=== PATIENT | female | born 1925 | race Caucasian/White ===

== ENCOUNTER 2016-06-19 18:56 | Inpatient (IN) | payer MEDICARE ==
[2016-06-19] MEDS ORDERED: SODIUM CHLORIDE 0.9% 1,000 ML IV ONE (19:36)
--- NOTE | 2016-06-19 19:43 | ED ---
Fall HPI - General Chief Complaint: Fall Stated Complaint: Fall Time Seen by Provider: 06/19/16 19:18 Source: patient, family, RN notes reviewed Mode of arrival: wheelchair - History of Present Illness Initial Comments: Patient is a 89-year-old female presents emergency room for evaluation of fall. Patient's daughter is present with patient. Patient's daughter states patient has a history dementia and lives by herself. Patient's daughter states she went to check on patient last night and was told that she fell about 2 nights ago. Patient's daughter states the fall was unwitnessed. Patient's daughter states she is not sure how patient fell. Patient's daughter states patient is continuously complaining of low back/tailbone pain. Patient's daughter states she gave patient 600 mg ibuprofen with little relief symptoms. Patient's daughter states patient told her she hit her head during the fall. Patient states she is having severe pain in her tailbone. Patient states the pain is worse when she moves her back or walks. Patient denies numbness or tingling going down her legs. Patient denies saddle anesthesia. Patient does state she has slight head pain from fall 2 days ago. Patient denies limb pain, chest pain, neck pain, abdominal pain. Patient's daughter does admit that she has urinary incontinence issues. - Related Data Home Medications Medication Instructions Recorded Confirmed Aspirin EC [Ecotrin] 81 mg PO DAILY 07/11/14 06/19/16 Losartan Potassium [Cozaar] 25 mg PO DAILY 07/11/14 06/19/16 Pravastatin Sodium [Pravachol] 40 mg PO DAILY 07/11/14 06/19/16 Sertraline HCl [Zoloft] 50 mg PO DAILY 07/11/14 06/19/16 Loratadine [Claritin] 10 mg PO DAILY 11/30/15 06/19/16 Cholecalciferol [Vitamin D3] 1,000 unit PO DAILY 06/19/16 06/19/16 Ibuprofen [Motrin] 600 mg PO Q8HR PRN 06/19/16 06/19/16 Magnesium Hydroxide [Milk of 1,200 mg PO DAILY PRN 06/19/16 06/19/16 Magnesia] Meloxicam [Mobic] 15 mg PO DAILY 06/19/16 06/19/16 Ranitidine HCl [Zantac] 150 mg PO DAILY 06/19/16 06/19/16 Allergies Allergy/AdvReac Type Severity Reaction Status Date / Time Sulfa (Sulfonamide Allergy Unknown Verified 06/19/16 19:27 Antibiotics) Review of Systems ROS Statement: Those systems with pertinent positive or pertinent negative responses have been documented in the HPI. ROS Other: All systems not noted in ROS Statement are negative. Past Medical History Past Medical History: COPD, Dementia, Hypertension History of Any Multi-Drug Resistant Organisms: None Reported Past Surgical History: No Surgical Hx Reported Past Psychological History: Depression Smoking Status: Current every day smoker Past Alcohol Use History: None Reported Past Drug Use History: None Reported - Past Family History Mother Family Medical History: CVA/TIA, Myocardial Infarction ([place]) Father Family Medical History: Myocardial Infarction ([place]) General Exam - General Exam Comments Initial Comments: Sitting in exam room, no distress. Limitations: no limitations General appearance: alert, in no apparent distress Head exam: Present: atraumatic, normocephalic, normal inspection Eye exam: Present: normal appearance, PERRL, EOMI Pupils: Present: normal accommodation ENT exam: Present: normal exam Neck exam: Present: normal inspection Respiratory exam: Present: normal lung sounds bilaterally. Absent: respiratory distress Cardiovascular Exam: Present: regular rate, normal rhythm, normal heart sounds GI/Abdominal exam: Present: soft, normal bowel sounds. Absent: distended, tenderness, guarding, rebound, rigid Extremities exam: Present: normal inspection, full ROM, normal capillary refill. Absent: tenderness Back exam: Present: vertebral tenderness (Lumbosacral spine and coccyx). Absent : full ROM Neurological exam: Present: alert, oriented X3, CN II-XII intact, normal gait Expanded Patient oriented to: Present: person Cranial nerves: EOM's Intact: Normal Sensory exam: Upper Extremity Light Touch: Normal, Lower Extremity Light Touch: Normal Motor strength exam: RUE: 5, LUE: 5, RLE: 5, LLE: 5 Psychiatric exam: Present: normal affect, normal mood Skin exam: Present: warm, dry, intact, normal color. Absent: rash Course Vital Signs 06/19/16 06/19/16 19:03 23:09 Temperature 98.4 F Pulse Rate 98 97 Respiratory 16 16 Rate Blood Pressure 116/61 149/81 O2 Sat by Pulse 95 94 L Oximetry Medical Decision Making - Medical Decision Making Patient is a 89-year-old female presents to the emergency room for evaluation of unwitnessed fall injury. Brain/C-spine CT shows no acute findings. Lumbosacral spine x-ray significant for progressed L1 compression fracture from 11/30/15 with 30-40% height loss. Sacrum and coccyx x-ray significant for minimally posterior displaced fracture of distal coccygeal segments. Patient has a slightly elevated white count. Chest x-ray significant for patchy posterior basilar atelectasis or developing pneumonia. Due to elevated white count and possibly pneumonia, will treat patient for pneumonia. Patient started on Rocephin and azithromycin. Urinalysis shows no significant findings. Results discussed with patient's daughter. Patient will be admitted for treatment of pneumonia and for pain management of coccygeal fracture and L1 compression fracture. Case discussed with Dr. Velásquez. Dr. Velásquez discussed case with Dr. Henry who agreed to admit patient. - Lab Data Result diagrams: 06/19/16 19:50 06/19/16 19:50 Lab Results 06/19/16 06/19/16 06/19/16 Range/Units 19:50 19:50 19:50 WBC 11.4 H (3.8-10.6) k/uL RBC 3.72 L (3.80-5.40) m/uL Hgb 11.6 (11.4-16.0) gm/dL Hct 34.6 (34.0-46.0) % MCV 93.1 (80.0-100.0) fL MCH 31.2 (25.0-35.0) pg MCHC 33.5 (31.0-37.0) g/dL RDW 13.0 (11.5-15.5) % Plt Count 279 (150-450) k/uL Neutrophils % 79 % Lymphocytes % 10 % Monocytes % 7 % Eosinophils % 3 % Basophils % 1 % Neutrophils # 9.0 H (1.3-7.7) k/uL Lymphocytes # 1.1 (1.0-4.8) k/uL Monocytes # 0.8 (0-1.0) k/uL Eosinophils # 0.3 (0-0.7) k/uL Basophils # 0.1 (0-0.2) k/uL PT (9.0-12.0) sec INR (<1.1) APTT (22.0-30.0) sec Sodium 138 (137-145) mmol/L Potassium 4.1 (3.5-5.1) mmol/L Chloride 102 (98-107) mmol/L Carbon Dioxide 27 (22-30) mmol/L Anion Gap 9 mmol/L BUN 23 H (7-17) mg/dL Creatinine 0.90 (0.52-1.04) mg/dL Est GFR (MDRD) Af Amer >60 (>60 ml/min/1.73 sqM) Est GFR (MDRD) Non-Af 59 (>60 ml/min/1.73 sqM) Glucose 106 H (74-99) mg/dL Calcium 10.6 H (8.4-10.2) mg/dL Magnesium 2.5 H (1.6-2.3) mg/dL Total Bilirubin 0.7 (0.2-1.3) mg/dL AST 17 (14-36) U/L ALT 26 (9-52) U/L Alkaline Phosphatase 68 (38-126) U/L Total Creatine Kinase 57 (30-135) U/L CK-MB (CK-2) 0.6 (0.0-2.4) ng/mL CK-MB (CK-2) Rel Index 1.1 Troponin I <0.012 (0.000-0.034) ng/mL Total Protein 6.3 (6.3-8.2) g/dL Albumin 3.6 (3.5-5.0) g/dL Urine Color Urine Appearance (Clear) Urine pH (5.0-8.0) Ur Specific [place] (1.001-1.035) Urine Protein (Negative) Urine Glucose (UA) (Negative) Urine Ketones (Negative) Urine Blood (Negative) Urine Nitrite (Negative) Urine Bilirubin (Negative) Urine Urobilinogen (<2.0) mg/dL Ur Leukocyte Esterase (Negative) Urine WBC (0-5) /hpf Amorphous Sediment (None) /hpf Urine Mucus (None) /hpf 06/19/16 06/19/16 Range/Units 19:50 22:00 WBC (3.8-10.6) k/uL RBC (3.80-5.40) m/uL Hgb (11.4-16.0) gm/dL Hct (34.0-46.0) % MCV (80.0-100.0) fL MCH (25.0-35.0) pg MCHC (31.0-37.0) g/dL RDW (11.5-15.5) % Plt Count (150-450) k/uL Neutrophils % % Lymphocytes % % Monocytes % % Eosinophils % % Basophils % % Neutrophils # (1.3-7.7) k/uL Lymphocytes # (1.0-4.8) k/uL Monocytes # (0-1.0) k/uL Eosinophils # (0-0.7) k/uL Basophils # (0-0.2) k/uL PT 10.8 (9.0-12.0) sec INR 1.1 (<1.1) APTT 23.7 (22.0-30.0) sec Sodium (137-145) mmol/L Potassium (3.5-5.1) mmol/L Chloride (98-107) mmol/L Carbon Dioxide (22-30) mmol/L Anion Gap mmol/L BUN (7-17) mg/dL Creatinine (0.52-1.04) mg/dL Est GFR (MDRD) Af Amer (>60 ml/min/1.73 sqM) Est GFR (MDRD) Non-Af (>60 ml/min/1.73 sqM) Glucose (74-99) mg/dL Calcium (8.4-10.2) mg/dL Magnesium (1.6-2.3) mg/dL Total Bilirubin (0.2-1.3) mg/dL AST (14-36) U/L ALT (9-52) U/L Alkaline Phosphatase (38-126) U/L Total Creatine Kinase (30-135) U/L CK-MB (CK-2) (0.0-2.4) ng/mL CK-MB (CK-2) Rel Index Troponin I (0.000-0.034) ng/mL Total Protein (6.3-8.2) g/dL Albumin (3.5-5.0) g/dL Urine Color Light Yellow Urine Appearance Cloudy H (Clear) Urine pH 6.5 (5.0-8.0) Ur Specific [place] 1.007 (1.001-1.035) Urine Protein Negative (Negative) Urine Glucose (UA) Negative (Negative) Urine Ketones Negative (Negative) Urine Blood Negative (Negative) Urine Nitrite Negative (Negative) Urine Bilirubin Negative (Negative) Urine Urobilinogen <2.0 (<2.0) mg/dL Ur Leukocyte Esterase Negative (Negative) Urine WBC 3 (0-5) /hpf Amorphous Sediment Rare H (None) /hpf Urine Mucus Rare H (None) /hpf 06/19/16 22:59 Normal sinus rhythm, 93 bpm, W[place] interval 182 ms, QRS duration 80 ms, QT/QTC 338/ 420 ms - Radiology Data Radiology results: report reviewed, image reviewed Disposition Clinical Impression: Fall, Coccygeal fracture, Compression fracture of L1 lumbar vertebra, Pneumonia Disposition: ADMITTED IP TO THIS [facility] Condition: Stable Decision Date: 06/19/16
[2016-06-19 20:05] LABS: Basophils # (A) 0.1 k/uL (0-0.2); Basophils % (A) 1 %; CH 30.5; CHCM 32.9; Eosinophils # (A) 0.3 k/uL (0-0.7); Eosinophils % (A) 3 %; HCT 34.6 % (34.0-46.0); HDW 2.13; HGB 11.6 gm/dL (11.4-16.0); Luc # (Auto) 0.16; Luc % (Auto) 1; Lymphocytes # (A) 1.1 k/uL (1.0-4.8); Lymphocytes % (A) 10 %; MCH 31.2 pg (25.0-35.0); MCHC 33.5 g/dL (31.0-37.0); MCV 93.1 fL (80.0-100.0); Mean Platelet Volume 7.6; Monocytes # (A) 0.8 k/uL (0-1.0); Monocytes % (A) 7 %; Neutrophils % (A) 79 %; RBC 3.72 m/uL (3.80-5.40); WBC 11.4 k/uL (3.8-10.6); WBC (Perox) 11.86
[2016-06-19 20:27] LABS: ALT 26 U/L (9-52); AST 17 U/L (14-36); Alkaline Phosphatase 68 U/L (38-126); Anion Gap 9 mmol/L; Blood Urea Nitrogen 23 mg/dL (7-17); Calcium 10.6 mg/dL (8.4-10.2); Carbon Dioxide 27 mmol/L (22-30); Chloride 102 mmol/L (98-107); Glucose 106 mg/dL (74-99); Magnesium 2.5 mg/dL (1.6-2.3); Non-African American GFR(MDRD) 59 (>60 ml/min/1.73 sqM); Potassium 4.1 mmol/L (3.5-5.1); Sodium 138 mmol/L (137-145); Total Bilirubin 0.7 mg/dL (0.2-1.3); Total Protein 6.3 g/dL (6.3-8.2)
[2016-06-19 20:39] LABS: Creatine Kinase 57 U/L (30-135)
--- NOTE | 2016-06-19 20:49 | CT ---
EXAMINATION TYPE: CT brain arunaine wo con DATE OF EXAM: 06/19/2016 8:30 PM COMPARISON: NONE HISTORY: 89-year-old female with fall today with possible head injury CT DLP: 1255.3 mGycm Automated exposure control for dose reduction was used. Technique: Examination of the head was done in axial plane without intravenous contrast. Coronal and sagittal reconstructions performed. CT of the cervical spine was obtained in axial plane without intravenous injection of contrast mater ial. Coronal and sagittal reformatted images were obtained from the axial views for evaluation of f ractures, spinal alignment and canal. FINDINGS: Head: There is no evidence of acute intracranial hemorrhage, acute ischemic changes, mass, mass-effect, or extra-axial fluid collection. There is no effacement of cerebral sulci or basal subarachnoid cister ns. There is no hydrocephalus. There is no midline shift. Lane-white matter distinction is preserv ed. There is moderate mild central cerebral volume loss. Moderate to severe confluent white matter hypode nsities in both cerebral hemispheres. Orbits and globes are intact. Visualized paranasal sinuses are well pneumatized. Minimal retained flu id within the inferior most right mastoid air cells. Cerumen within the left external auditory canal. Cervical spine: No craniocervical junction abnormality, predental space widening, or prevertebral soft tissue swellin g. Moderate disc/endplate degenerative changes especially in the mid to lower cervical spine. Disc osteo phyte complex at C6-C7 causes mild narrowing of the spinal canal. Additional scattered facet and uncovertebral joint degenerative change. No significant neuroforaminal stenosis seen. No acute fracture identified. Alignment is maintained though the normal cervical lordosis is straight ened.. Sagittal and coronal reformatted images confirm above findings. COMBINED IMPRESSION: 1. No acute intracranial abnormality seen. Moderate to severe confluent changes of chronic small vess el ischemic disease. 2. No acute fracture or malalignment of the cervical spine. Moderate spondylotic change. Straightenin g of the normal cervical lordosis could be positional or due to muscle spasm.
[2016-06-19 20:51] LABS: Creatine Kinase MB 0.6 ng/mL (0.0-2.4); Troponin I <0.012 ng/mL (0.000-0.034)
--- NOTE | 2016-06-19 20:52 | XR ---
EXAMINATION TYPE: XR chest 2V DATE OF EXAM: 06/19/2016 8:39 PM COMPARISON: 07/11/2014 HISTORY: 89-year-old female with chest pain after fall TECHNIQUE: Frontal and lateral views FINDINGS: Heart is upper limits of normal in size. Mild diffuse interstitial prominence was present previously. There is some patchy posterior basilar opacity on the lateral view without pleural effusion. Some ch ronic-appearing bony deformity to the proximal right humerus incompletely visualized. IMPRESSION: 1. Patchy posterior basilar atelectasis or developing infiltrate. 2. Chronic parenchymal changes, possible chronic bronchitis/asthma.
--- NOTE | 2016-06-19 20:58 | XR ---
EXAMINATION TYPE: 5 views lumbar spine. 3 views sacrum coccyx. DATE OF EXAM: 06/19/2016 8:39 PM COMPARISON: 11/30/2015 HISTORY: 89-year-old female with pain after fall onto back a few days ago FINDINGS: Lumbar spine: Hypertrophic facet arthropathy throughout the lumbar spine. 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 There is severe loss of disc height at L4-L5 and L5-S1 similar to slightly progressed from 6 with endplates sclerosis and disc vacuum. Trace grade 1 anterolisthesis at L3-L4 is unchanged. Ther e is superior endplate compression deformity of L1 with a 30-40% overall height loss. This has progre ssed as compared to 11/30/2015. Dense atherosclerotic calcification throughout the abdominal aorta. Sacrum coccyx: SI joints appear symmetric and intact. Arcuate lines of the sacrum appears smooth and continuous. The couple distal coccygeal segments show right step-off with minimal posterior displacement. IMPRESSION: 1. Hypertrophic facet arthropathy with unchanged trace grade 1 anterolisthesis at L3-L4. 2. Moderate to severe disc/endplate degenerative change at L4-L5 and L5-S1 relatively unchanged as we ll. 3. The L1 superior endplate compression fracture has progressed from 11/30/2015 now with 30-40% overal l height loss. 4. Minimally posteriorly displaced fracture of the distal coccygeal segments is age indeterminate. Co rrelate for acute tailbone pain.
[2016-06-19 21:21] LABS: Partial Thromboplastin Time 23.7 sec (22.0-30.0)
[2016-06-19 21:22] LABS: INR 1.1 (<1.1); Prothrombin Time 10.8 sec (9.0-12.0)
[2016-06-19 22:16] LABS: Amorphous Sediment,Urine Rare /hpf; Appearance,Urine Cloudy (Clear); Bilirubin,Urine Negative (Negative); Glucose,Urine (UA) Negative (Negative); Ketones,Urine Negative (Negative); Leukocyte Esterase,Urine Negative (Negative); Mucus,Urine Rare /hpf; Nitrite,Urine Negative (Negative); PH, Urine 6.5 (5.0-8.0); Particle Count 28579; Protein,Urine Negative (Negative); Specific Gravity,Urine 1.007 (1.001-1.035); UA Billing (MACRO vs. MICRO) MICRO; Urobilinogen,Urine <2.0 mg/dL (<2.0); WBC,Urine 3 /hpf (0-5)
[2016-06-19] MEDS ORDERED: HYDROcodone/APAP 5-325MG 1 EACH TAB PO PRN (22:35)
[2016-06-19] MEDS ORDERED: IBUPROFEN 400 MG TAB PO PRN (22:35)
[2016-06-19] MEDS ORDERED: NALOXONE 0.4 MG/ML 1 ML VIAL IV PRN (22:35)
[2016-06-19] MEDS ORDERED: AZITHROMYCIN 500 MG in SODIUM CHLORIDE 0.9% 250 ML IVPB STA (22:38)
[2016-06-19] MEDS: SODIUM CHLORIDE 0.9% 1,000 ML IV SCH (23:03)
[2016-06-20 00:04] VITALS: BMI 22.4
[2016-06-20] MEDS: ACETAMINOPHEN TAB 325 MG TAB PO PRN ×2 (00:29→19:44)
--- NOTE | 2016-06-20 10:49 | P.CNOR ---
History of Present Illness - HPI Consult date: 06/20/16 History of present illness: This is a pleasant 89-year-old female who presented to the emergency department after sustaining a fall. X raiser obtained and the patient was found to have L1 fracture and coccyx fracture and subsequently we are consulted. Patient was seen and evaluated at bedside. She complains of pain over her tailbone and lower back. She states that she does have some history of lower back pain but states this is much worse since her fall. She states that she lost power a few days ago and is not quite sure how she fell. She believes she hit her head as well. She denies any numbness or tingling. Denies any hip pain. She denies any shortness of breath, chest pain, nausea or vomiting. Review of Systems See HPI Past Medical History Past Medical History: COPD, Dementia, Hypertension History of Any Multi-Drug Resistant Organisms: None Reported Past Surgical History: No Surgical Hx Reported Additional Past Anesthesia/Blood Transfusion Reaction / Comm: no history of blood transfusion Past Psychological History: Depression Smoking Status: Current every day smoker Past Alcohol Use History: None Reported Past Drug Use History: None Reported - Past Family History Mother Family Medical History: CVA/TIA, Myocardial Infarction ([place]) Father Family Medical History: Myocardial Infarction ([place]) Medications and Allergies Home Medications Medication Instructions Recorded Confirmed Type Aspirin EC [Ecotrin] 81 mg PO DAILY 07/11/14 06/19/16 History Losartan Potassium [Cozaar] 25 mg PO DAILY 07/11/14 06/19/16 History Pravastatin Sodium [Pravachol] 40 mg PO DAILY 07/11/14 06/19/16 History Sertraline HCl [Zoloft] 50 mg PO DAILY 07/11/14 06/19/16 History Loratadine [Claritin] 10 mg PO DAILY 11/30/15 06/19/16 History Cholecalciferol [Vitamin D3] 1,000 unit PO DAILY 06/19/16 06/19/16 History Ibuprofen [Motrin] 600 mg PO Q8HR PRN 06/19/16 06/19/16 History Magnesium Hydroxide [Milk of 1,200 mg PO DAILY PRN 06/19/16 06/19/16 History Magnesia] Meloxicam [Mobic] 15 mg PO DAILY 06/19/16 06/19/16 History Ranitidine HCl [Zantac] 150 mg PO DAILY 06/19/16 06/19/16 History Allergies Allergy/AdvReac Type Severity Reaction Status Date / Time Sulfa (Sulfonamide Allergy Unknown Verified 06/19/16 19:27 Antibiotics) Physical Examination She is not appear in acute distress. She is alert and answers questions appropriately. She is quite hard of hearing. Head normal cephalic atraumatic Neck is supple She moves her upper extremities freely without difficulty or pain. She is able to lift her lower extremities off the chair and perform straight leg raise without difficulty or pain. She denies any hip irritability with passive logroll bilaterally. She has sustained dorsiflexion, plantar flexion extensor hallux longus. Sensation and circulatory status is intact. She does complain of tenderness palpation of her lumbar spine and coccyx Results X-rays were obtained of the patient's lumbar sacral spine and sacrum and coccyx. These are reviewed. Radiologist's findings are noted as well. There is L1 superior endplate compression fracture. It is minimally is placed fracture the distal coccygeal segments - Labs Result Diagrams: 06/19/16 19:50 06/19/16 19:50 Assessment and Plan (1) Coccygeal fracture Status: Acute (2) Compression fracture of L1 lumbar vertebra Status: Acute (3) Fall Status: Acute Plan: Discuss clinical and x-ray findings with the patient at bedside today. She does have acute tenderness of her lumbar spine and coccyx. Supportive care and pain management is recommended in regards to her coccygeal fracture. In regards to her L1 compression fracture TLSO brace will be obtained. The patient is to wear the brace when she is sitting up more than 45 angle and up out of bed. The patient understands and agrees with the plan of care. The case will be discussed with Dr. Aguilera when he returns to [facility] as well. Patient will follow-up in the office with Dr. Aguilera.
[2016-06-20] MEDS: SODIUM CHLORIDE 0.9% 1,000 ML IV SCH (12:30)
[2016-06-20] MEDS ORDERED: ALPRAZolam 0.25 MG TAB PO PRN (15:30)
[2016-06-20] MEDS ORDERED: IPRATROPIUM-ALBUTEROL 3 ML NEB INHALATION PRN (20:11)
[2016-06-20] MEDS ORDERED: MELATONIN 3 MG TABLET PO SCH (21:00)
--- NOTE | 2016-06-20 21:17 | HP ---
DATE OF ADMISSION: 06/19/2016 CHIEF COMPLAINT: Back pain. HISTORY OF PRESENT ILLNESS: This 89-year-old woman with a past medical history of multiple medical problems including chronic obstructive pulmonary disease, history of dementia, hypertension, depression, history of nicotine dependence, was living by herself apparently. The patient apparently had a couple of falls and the patient was taken to [facility] and admitted to the hospital for further evaluation and treatment. L1 fracture coccygeal fracture also suspected and orthopedics evaluation in progress. There is no history of any fever, rigors or chills at this time. The patient unable to give a coherent history. Most of the history taken from my discussion with the ER physician, review of the chart and discussion with staff at this time. PAST MEDICAL HISTORY: COPD, dementia, hypertension, history of nicotine dependence. Medications prior to admission include: 1. Milk of Magnesia 1200 milligrams daily p.r.n. 2. Motrin 600 mg q.8h p.r.n. 3. Zantac 150 mg daily. 4. Zoloft 50 mg p.o. daily. 5. Pravachol 40 mg b.i.d. 6. Mobic 15 mg p.o. daily. 7. Cozaar 25 mg p.o. daily. 8. Claritin 10 mg p.o. daily. 9. Vitamin D3 3000 daily. 10. Ecotrin 81 mg p.o. daily. ALLERGIES: SULFA. FAMILY HISTORY: History of cerebrovascular accident, transient ischemic attack, myocardial infarction in the family. SOCIAL HISTORY: History of alcohol. No history of smoking. REVIEW OF SYSTEMS: Review of Systems could not be taken because of the patient's mental status. PHYSICAL EXAMINATION: Patient is conscious, confused. Pulse 86, pulse 145/80, respiratory rate 15, temperature 98.7, pulse ox 94% on room air. HEENT: Conjunctivae normal. Oral mucosa moist. NECK: No jugular venous distention. No carotid bruit. No lymph node enlargement. CARDIOVASCULAR: S1, S2 muffled. RESPIRATORY: Breath sounds diminished at the bases. A few scattered rhonchi, no crackles. ABDOMEN: Soft, nontender. No mass palpable. LEGS: No edema. No swelling. CENTRAL NERVOUS SYSTEM: Higher functions as mentioned. Moves all 4 limbs. No focal deficits. LYMPHATICS: No lymph nodes palpable in the neck, axillae or groin. SKIN: No ulcer, rash or bleeding. LABS: At this time shows WBC 11.9, hemoglobin is 11.6, glucose 106. Calcium is 10.7, magnesium 2.5. UA noted. ASSESSMENT: 1. Fall and back pain with L1 fracture as well as coccygeal fracture. 2. Increased WBC, possibly reactive. 3. Increased calcium and secondary to mild dehydration, present on admission. 4. History of chronic obstructive pulmonary disease. 5. History of dementia. 6. History of hypertension, essential. 7. History of depression. 8. History of nicotine dependence. 9. FULL CODE. 10. Possibly bibasilar atelectasis. RECOMMENDATIONS AND DISCUSSION: In this 89 -year-old woman who presented with multiple complex medical issues, we will monitor the patient closely. Symptomatic treatment for pain will be offered. Otherwise, I would also recommend DVT prophylaxis. Resume the home medications. The chest x-ray was also reviewed and that showed patchy posterior bibasilar atelectasis and developing infiltrate, chronic parenchymal changes. CAT scan was also noted. The L1 end plate shows at least 35% to 40% change from the previous CAT scans, superior end plate. Continue to monitor. See orders for further details. Further recommendations to follow. MTDD
[2016-06-20] MEDS: HEPARIN SODIUM,PORCINE 5,000 UNIT/ML 1 ML VIAL SQ SCH (21:21)
[2016-06-20] MEDS: MAGNESIUM HYDROXIDE 2,400 MG/10 ML CUP PO PRN (21:21)
[2016-06-20] MEDS: guaiFENesin-DM 100-10MG/5ML 10 ML CUP PO PRN (21:56)
[2016-06-21] MEDS: ACETAMINOPHEN TAB 325 MG TAB PO PRN ×4 (04:08→22:29)
[2016-06-21] MEDS: SODIUM CHLORIDE 0.9% 1,000 ML IV SCH ×2 (04:14→19:40)
[2016-06-21] MEDS ORDERED: ONDANSETRON 4 MG/2 ML VIAL IVP PRN (05:44)
[2016-06-21] MEDS: IPRATROPIUM-ALBUTEROL 3 ML NEB INHALATION SCH ×4 (06:53→20:12)
[2016-06-21] MEDS: SYMBICORT 160-4.5 MCG INHALER INHALATION SCH ×2 (06:53→20:16)
[2016-06-21] MEDS: ASPIRIN 81 MG CHEW PO SCH (07:25)
[2016-06-21] MEDS: HEPARIN SODIUM,PORCINE 5,000 UNIT/ML 1 ML VIAL SQ SCH ×2 (07:26→21:41)
[2016-06-21] MEDS: LOSARTAN 25 MG TAB PO SCH (07:26)
[2016-06-21] MEDS: SERTRALINE 50 MG TAB PO SCH (07:27)
[2016-06-21] MEDS: NICOTINE 21MG/24HR PATCH TRANSDERM SCH (07:27)
[2016-06-21] MEDS: PRAVASTATIN SODIUM 40 MG TAB PO SCH (07:27)
[2016-06-21] MEDS: CHOLECALCIFEROL 1,000 UNIT TAB PO SCH (07:27)
[2016-06-21] MEDS: MELOXICAM 7.5 MG TAB PO SCH (07:27)
[2016-06-21 07:29] LABS: Basophils # (A) 0.1 k/uL (0-0.2); Basophils % (A) 1 %; CHCM 32.4; Eosinophils # (A) 0.4 k/uL (0-0.7); Eosinophils % (A) 3 %; HCT 34.8 % (34.0-46.0); HDW 2.24; HGB 11.6 gm/dL (11.4-16.0); Luc # (Auto) 0.14; Luc % (Auto) 1; Lymphocytes # (A) 1.1 k/uL (1.0-4.8); Lymphocytes % (A) 9 %; MCH 30.9 pg (25.0-35.0); MCHC 33.3 g/dL (31.0-37.0); MCV 92.7 fL (80.0-100.0); Mean Platelet Volume 8.2; Monocytes # (A) 0.7 k/uL (0-1.0); Monocytes % (A) 6 %; Neutrophils # (A) 9.1 k/uL (1.3-7.7); Neutrophils % (A) 80 %; RBC 3.76 m/uL (3.80-5.40); RDW 12.8 % (11.5-15.5); WBC 11.4 k/uL (3.8-10.6)
[2016-06-21] MEDS ORDERED: PANTOPRAZOLE 40 MG TABLET PO SCH (07:30)
[2016-06-21 07:43] LABS: Anion Gap 12 mmol/L; Blood Urea Nitrogen 22 mg/dL (7-17); Calcium 10.1 mg/dL (8.4-10.2); Carbon Dioxide 24 mmol/L (22-30); Chloride 106 mmol/L (98-107); Glucose 130 mg/dL (74-99); Non-African American GFR(MDRD) >60 (>60 ml/min/1.73 sqM); Potassium 3.5 mmol/L (3.5-5.1); Sodium 142 mmol/L (137-145)
[2016-06-21] MEDS ORDERED: LORATADINE 10 MG TAB PO SCH (09:00)
[2016-06-21] MEDS ORDERED: FAMOTIDINE 20 MG TAB PO SCH (09:00)
[2016-06-21] MEDS: MULTIVITAMINS, THERA 1 EACH TAB PO SCH (12:21)
[2016-06-21] MEDS: MAGNESIUM HYDROXIDE 2,400 MG/10 ML CUP PO PRN (21:41)
[2016-06-21] MEDS: guaiFENesin-DM 100-10MG/5ML 10 ML CUP PO PRN (21:41)
--- NOTE | 2016-06-21 21:42 | PN ---
This 89-year-old woman is admitted with back pain and also significant gait dysfunction also. Orthopedics is advising brace at this time. The patient is mildly confused. The patient is being closely monitored at this time. White count is slightly elevated. UA appears cloudy with 3 WBC and amorphous sediments also. PAST MEDICAL HISTORY: Reviewed. REVIEW OF SYSTEMS: Could not be taken, patient is confused. Current medications are reviewed: 1. Tylenol 650 every 6 hours p.r.n. 2. [place] 5 mg every 4 hours p.r.n. 3. Xanax 0.5 mg daily. 4. Aspirin. 5. Symbicort b.i.d. 6. Pepcid 20 mg daily. 7. Claritin. 8. Cozaar. 9. Meloxicam. 10. Zofran. 11. Pravachol. PHYSICAL EXAMINATION: Patient is conscious, but confused. Pulse 82, blood pressure 140/81, respirations 16, temperature 97.4, pulse ox 98% on room air. HEENT: Conjunctivae normal. NECK: Supple. No JVD. CARDIOVASCULAR: S1 and S2 muffled. LUNGS: Breath sounds diminished at the bases. Few scattered rhonchi. No crackles. ABDOMEN: Soft, nontender, no masses palpable. EXTREMITIES: Legs no edema. NERVOUS SYSTEM: Diffusely weak. BACK: Back pain present. LABS: WBC 11.6, hemoglobin 11. Otherwise, the glucose is 130. ASSESSMENT: 1. Fall and back pain with L1 fracture as well as coccygeal fracture. 2. Increased WBC, possibly reactive. 3. Change in mental status, possible acute delirium. 4. Increased calcium secondary to mild dehydration, present on admission. 5. Gait dysfunction. 6. Chronic obstructive pulmonary disease. 7. History of dementia. 8. Hypertension, essential. 9. History of depression, not otherwise specified. 10. History of nicotine dependence. 11. Possible bibasilar atelectasis. 12. FULL CODE. RECOMMENDATIONS: In this 89-year-old woman who presented with multiple medical problems as noted, we will monitor the patient closely, continue the current medications, continue symptomatic treatment. Recommend empiric antibiotics and bronchodilators. Continue to monitor. PT/OT evaluation. See orders for further details. Prognosis guarded. Discussed with the family who understand. See orders for further details.
[2016-06-22] MEDS: SODIUM CHLORIDE 0.9% 1,000 ML IV SCH (04:40)
[2016-06-22 07:34] VITALS: BP 131/72; RESP 15; TEMP 98.7
[2016-06-22] MEDS: NICOTINE 21MG/24HR PATCH TRANSDERM SCH (07:58)
[2016-06-22] MEDS: HEPARIN SODIUM,PORCINE 5,000 UNIT/ML 1 ML VIAL SQ SCH (07:58)
[2016-06-22] MEDS: MELOXICAM 7.5 MG TAB PO SCH (07:58)
[2016-06-22] MEDS: LOSARTAN 25 MG TAB PO SCH (07:58)
[2016-06-22] MEDS: ASPIRIN 81 MG CHEW PO SCH (07:58)
[2016-06-22] MEDS: CHOLECALCIFEROL 1,000 UNIT TAB PO SCH (07:58)
[2016-06-22] MEDS: PRAVASTATIN SODIUM 40 MG TAB PO SCH (07:59)
[2016-06-22] MEDS: SERTRALINE 50 MG TAB PO SCH (07:59)
[2016-06-22] MEDS: ACETAMINOPHEN TAB 325 MG TAB PO PRN ×2 (08:05→14:48)
[2016-06-22 08:24] LABS: Anion Gap 9 mmol/L; Blood Urea Nitrogen 22 mg/dL (7-17); Carbon Dioxide 24 mmol/L (22-30); Chloride 106 mmol/L (98-107); Glucose 91 mg/dL (74-99); Non-African American GFR(MDRD) 50 (>60 ml/min/1.73 sqM); Potassium 4.1 mmol/L (3.5-5.1); Sodium 139 mmol/L (137-145)
[2016-06-22] MEDS: IPRATROPIUM-ALBUTEROL 3 ML NEB INHALATION SCH ×2 (08:53→13:40)
[2016-06-22] MEDS: SYMBICORT 160-4.5 MCG INHALER INHALATION SCH (08:53)
[2016-06-22 09:16] LABS: Basophils # (A) 0.1 k/uL (0-0.2); Basophils % (A) 1 %; CH 29.4; CHCM 29.5; Eosinophils # (A) 0.5 k/uL (0-0.7); Eosinophils % (A) 5 %; HCT 32.3 % (34.0-46.0); HDW 2.19; HGB 10.1 gm/dL (11.4-16.0); Hypochromasia Marked; Luc # (Auto) 0.27; Luc % (Auto) 3; Lymphocytes # (A) 1.7 k/uL (1.0-4.8); Lymphocytes % (A) 18 %; MCH 31.2 pg (25.0-35.0); MCHC 31.1 g/dL (31.0-37.0); MCV 100.2 fL (80.0-100.0); Mean Platelet Volume 8.4; Monocytes # (A) 0.7 k/uL (0-1.0); Monocytes % (A) 7 %; Neutrophils # (A) 6.4 k/uL (1.3-7.7); Neutrophils % (A) 66 %; RBC 3.22 m/uL (3.80-5.40); WBC 9.6 k/uL (3.8-10.6); WBC (Perox) 9.12
[2016-06-22 10:20] VITALS: PULSE 95
[2016-06-22] MEDS ORDERED: FOLIC ACID 1 MG TAB PO SCH (12:00)
[2016-06-22] MEDS ORDERED: THIAMINE 100 MG TAB PO SCH (12:00)
[2016-06-22] MEDS: MULTIVITAMINS, THERA 1 EACH TAB PO SCH (12:13)
--- NOTE | 2016-06-22 13:59 | DS ---
DATE OF ADMISSION: 06/19/2016 DATE OF DISCHARGE: FINAL DIAGNOSES: 1. Fall and back pain with L1 fracture with acute coccygeal fracture. 2. Increased WBC, possibly reactive. 3. Change in mental status, possible acute delirium. 4. Increased calcium possibly secondary to dehydration, present on admission. 5. Gait dysfunction. 6. Chronic obstructive pulmonary disease. 7. History of dementia. 8. Hypertension, essential. 9. History of depression, not otherwise specified. 10. History of nicotine dependence. 11. Possible bibasilar atelectasis. 12. FULL CODE. DISCHARGE DISPOSITION: Patient will be discharged in a stable condition with guarded prognosis. Total time taken 35 minutes. Patient will be transferred to [facility]. HISTORY OF PRESENT ILLNESS: This 89-year-old woman with a past medical history of multiple medical problems was admitted with fall and as well as features of atelectasis, confusion, pain, gait dysfunction and other medical issues. Treated symptomatically. Orthopedics saw the patient, recommended conservative line of management. CAT scans were noted. On exam, vitals are stable. CARDIOVASCULAR SYSTEM: S1, S2 muffled. RESPIRATORY: A few rhonchi. ABDOMEN: Soft. NERVOUS SYSTEM: No focal deficits. DISCHARGE ADVICE: 1. Diet is cardiac. 2. Activity limited until followup. 3. Follow up with Dr. Rafael Gore in 2 to 3 days. 4. Follow up with Dr. Aguilera as recommended. P.r.n. medications will be as below: 1. Ecotrin 81 mg p.o. daily. 2. Symbicort 160/4.5 two puffs b.i.d. 3. Vitamin D3 one thousand daily. 4. Folic acid 1 mg daily. 5. [place] 5 mg q.4 p.r.n. 6. Albuterol Atrovent updrafts q.i.d. and p.r.n. 7. Claritin 10 mg p.o. daily. 8. Cozaar 25 mg p.o. daily. 9. Milk of magnesia p.o. daily. 7. Multivitamin 1 p.o. daily. 8. Habitrol 21 daily. 9. Pravachol 40 mg daily. 10.Zantac 150 mg p.o. daily. 11.Zoloft 50 mg p.o. daily. 12.Thiamine 100 mg p.o. daily. 13. Guaifenesin 10 mL q.6 p.r.n. 14. Mobic 15 mg p.o. daily. CBC, BMP in 2 to 3 days mass. Once again, the patient will be discharged in a stable condition with guarded prognosis.
== END 2016-06-22 14:56 | DRG 552 ==
LOC: EC 18:56 → 3SUR 22:53
PROVIDERS: ADMIT Internal Medicine; ATTEND Internal Medicine
DX: S32.019A Unspecified fracture of first lumbar vertebra, initial encounter for closed fracture (principal); S32.2XXA Fracture of coccyx, initial encounter for closed fracture; J98.11 Atelectasis; J44.9 Chronic obstructive pulmonary disease, unspecified; E86.0 Dehydration; F03.90 Unspecified dementia, unspecified severity, without behavioral disturbance, psychotic disturbance, mood disturbance, and anxiety; F32.9 Major depressive disorder, single episode, unspecified; R26.9 Unspecified abnormalities of gait and mobility; R41.0 Disorientation, unspecified; I10 Essential (primary) hypertension; Z87.891 Personal history of nicotine dependence; Z79.82 Long term (current) use of aspirin; Z79.1 Long term (current) use of non-steroidal anti-inflammatories (NSAID); Z79.899 Other long term (current) drug therapy; Z91.81 History of falling; W19.XXXA Unspecified fall, initial encounter; Y92.009 Unspecified place in unspecified non-institutional (private) residence as the place of occurrence of the external cause
CPT/HCPCS: 36415; 70450; 71020; 72110; 72125; 72220; 80048; 80053; 81001; 82550; 82553; 83735; 84484; 85025; 85610; 85730; 93005; 94640; 96360; 99284

== ENCOUNTER 2016-11-02 22:06 | Inpatient (IN) | payer MEDICARE ==
[2016-11-02] MEDS ORDERED: MORPHINE SULFATE 4 MG/ML SYRINGE IV STA (22:31)
[2016-11-02] MEDS ORDERED: ASPIRIN 81 MG CHEW PO STA (22:31)
[2016-11-02] MEDS ORDERED: NITROGLYCERIN OINT 1 INCH/GM PACKET TOPICAL STA (22:31)
[2016-11-02] MEDS ORDERED: ONDANSETRON 4 MG/2 ML VIAL IVP STA (22:31)
[2016-11-02] MEDS ORDERED: SODIUM CHLORIDE 0.9% 1,000 ML IV STA (22:31)
[2016-11-02] MEDS ORDERED: NITROGLYCERIN SL TABS 0.4 MG TAB SUBLINGUAL STA (22:31)
[2016-11-02 23:13] LABS: Basophils # (A) 0.1 k/uL (0-0.2); Basophils % (A) 1 %; CH 31.8; CHCM 32.9; Eosinophils # (A) 0.3 k/uL (0-0.7); Eosinophils % (A) 3 %; HCT 39.2 % (34.0-46.0); HDW 2.11; HGB 12.8 gm/dL (11.4-16.0); Luc # (Auto) 0.22; Luc % (Auto) 2; Lymphocytes # (A) 1.6 k/uL (1.0-4.8); Lymphocytes % (A) 15 %; MCH 31.7 pg (25.0-35.0); MCHC 32.7 g/dL (31.0-37.0); MCV 96.8 fL (80.0-100.0); Mean Platelet Volume 8.2; Monocytes % (A) 9 %; Neutrophils # (A) 7.7 k/uL (1.3-7.7); Neutrophils % (A) 71 %; RBC 4.05 m/uL (3.80-5.40); RDW 13.6 % (11.5-15.5); WBC 10.8 k/uL (3.8-10.6); WBC (Perox) 10.38
[2016-11-02 23:23] LABS: INR 0.9 (<1.2); Partial Thromboplastin Time 23.6 sec (22.0-30.0); Prothrombin Time 9.7 sec (9.0-12.0)
[2016-11-02 23:24] LABS: Calcium 10.9 mg/dL (8.4-10.2); Magnesium 2.1 mg/dL (1.6-2.3); Total Bilirubin 0.2 mg/dL (0.2-1.3); Total Protein 7.1 g/dL (6.3-8.2)
[2016-11-02 23:30] LABS: Creatine Kinase 30 U/L (30-135)
--- NOTE | 2016-11-02 23:41 | XR ---
EXAM: XR Chest, 2 Views CLINICAL HISTORY: Reason: Chest Pain TECHNIQUE: Frontal and lateral views of the chest. COMPARISON: 06/19/2016 FINDINGS: Heart is again at the upper limits of normal. Atherosclerotic vascular calcifications involving the aortic arch. Mild diffuse interstitial prominence is again seen. Patchy posterior basilar opacity is again seen on the lateral view without evidence of pleural effusion, essentially unchanged. The osseous structures are unchanged. IMPRESSION: Patchy posterior basilar atelectasis or developing infiltrate, similar to prior study. No other significant interval change. Clinical correlation recommended.
[2016-11-02 23:43] LABS: Creatine Kinase MB 0.7 ng/mL (0.0-2.4); Troponin I <0.012 ng/mL (0.000-0.034)
--- NOTE | 2016-11-03 00:40 | ED ---
Chest Pain HPI - General Chief Complaint: Chest Pain Stated Complaint: chest pressure Time Seen by Provider: 11/02/16 22:14 Source: patient, EMS Mode of arrival: EMS - History of Present Illness Initial Comments: 89 years old female presents with chest pain, it been ongoing for several hours also just been discharged with deep breaths. She is a long-term smoker has been coughing denies any sputum production, she did see her sewer inspector 2 days ago and everything looked pretty good at that point. She denies any headaches no neck stiffness does have a chest pain does have some shortness of breath denies any fever no chills no abdominal pain no frequency urgency dysuria no sinus symptoms of TIA or CVA - Related Data Home Medications Medication Instructions Recorded Confirmed Aspirin EC [Ecotrin Low Dose] 81 mg PO DAILY 07/11/14 11/02/16 Losartan Potassium [Cozaar] 25 mg PO DAILY 07/11/14 11/02/16 Pravastatin Sodium [Pravachol] 40 mg PO HS 07/11/14 11/02/16 Loratadine [Claritin] 10 mg PO DAILY 11/30/15 11/02/16 Cholecalciferol [Vitamin D3] 1,000 unit PO DAILY 06/19/16 11/02/16 Ranitidine HCl [Zantac] 150 mg PO DAILY 06/19/16 11/02/16 Acetaminophen Tab [Tylenol Tab] 500 mg PO BID 11/02/16 11/02/16 Albuterol Nebulized [Ventolin 2.5 mg INHALATION RT-BID PRN 11/02/16 11/02/16 Nebulized] Ciprofloxacin HCl [Cipro] 500 mg PO BID 11/02/16 11/02/16 Nicotine Polacrilex [Nicorette] 4 mg BUCCAL BID 11/02/16 11/02/16 traZODone HCL 25 mg PO HS 11/02/16 11/02/16 Allergies Allergy/AdvReac Type Severity Reaction Status Date / Time Sulfa (Sulfonamide Allergy Unknown Verified 11/02/16 22:10 Antibiotics) Review of Systems ROS Statement: Those systems with pertinent positive or pertinent negative responses have been documented in the HPI. ROS Other: All systems not noted in ROS Statement are negative. EKG Findings - EKG Comments: EKG Findings:: EKG is a sinus tachycardia heart rate is 11 IN interval is 168 QRS duration is 82 QT/QTc is 352/456 review of this EKG does not reveal any ST elevation or ST depression Past Medical History Past Medical History: COPD, Dementia, Hypertension History of Any Multi-Drug Resistant Organisms: None Reported Past Surgical History: No Surgical Hx Reported Additional Past Anesthesia/Blood Transfusion Reaction / Comment(s): no history of blood transfusion Past Psychological History: Depression Smoking Status: Former smoker Past Alcohol Use History: None Reported Past Drug Use History: None Reported - Past Family History Mother Family Medical History: CVA/TIA, Myocardial Infarction ([place]) Father Family Medical History: Myocardial Infarction ([place]) General Exam - General Exam Comments Initial Comments: General: The patient is awake and alert, in no distress, and does not appear acutely ill. He is quite hard of hearing Skin: Skin is warm and dry and no rashes or lesions are noted. Eye: Pupils are equal, round and reactive to light, extra-ocular movements are intact; there is normal conjunctiva bilaterally. Ears, nose, mouth and throat: There are moist mucous membranes and no oral lesions. Neck: The neck is supple, there is no tenderness or JVD. Cardiovascular: There is a regular rate and rhythm. No murmur, rub or gallop is appreciated. Respiratory: To auscultation bilateral, is consistent with the COPD noticed some crackles at the bases as well Gastrointestinal: Soft, non-distended, non-tender abdomen without masses or organomegaly noted. There is no rebound or guarding present. Bowel sounds are unremarkable. Back: There is no tenderness to palpation in the midline. There is no obvious deformity. Musculoskeletal: Normal ROM, no tenderness, There is no pedal edema. There is no calf tenderness or swelling. No cords were appreciated. Neurological: CN II-XII intact, Cranial nerves III through XII are intact. There are no obvious motor or sensory deficits. Coordination appears grossly intact. Speech is normal. Psychiatric: Cooperative, appropriate mood & affect, normal judgment. Course Vital Signs 11/02/16 11/02/16 11/03/16 22:10 23:50 00:23 Temperature 97.6 F Pulse Rate 108 H 87 86 Respiratory 16 18 18 Rate Blood Pressure 170/72 149/67 132/63 O2 Sat by Pulse 98 98 98 Oximetry Critical Care Time Total Critical Care Time: 30 Critical Care Time: Chest pain ongoing for a few hours, troponin is negative EKG was unremarkable per Dr. she has a terms of risk factors she smoked for over 40 years considering her age she'll be gone on the heparin infusion all cardiology be consulted and she also had well Integument infiltrate versus atelectasis (perhaps some antibiotics cardiology be consulted tomorrow. Disposition Clinical Impression: Chest pain, COPD (chronic obstructive pulmonary disease), Pneumonia Disposition: ADMITTED IP TO THIS HOSP Condition: Fair Referrals: Cherelle Cardenas MD [Primary Care Provider] - 1-2 days
[2016-11-03] MEDS ORDERED: NITROGLYCERIN SL TABS 0.4 MG TAB SUBLINGUAL PRN (00:52)
[2016-11-03] MEDS ORDERED: HEPARIN SODIUM,PORCINE/D5W PMX 25,000 UNIT in DEXTROSE/WATER 1 500ML.BAG IV SCH (01:00)
[2016-11-03] MEDS ORDERED: ALBUTEROL NEBULIZED 2.5 MG/3 ML INHALATION PRN (01:04)
[2016-11-03] MEDS ORDERED: cefTRIAXone 2,000 MG in SODIUM CHLORIDE 0.9% 100 ML IVPB STA (01:06)
[2016-11-03] MEDS ORDERED: AZITHROMYCIN 500 MG in SODIUM CHLORIDE 0.9% 250 ML IVPB STA (01:06)
[2016-11-03 03:07] VITALS: BMI 25.1
--- NOTE | 2016-11-03 03:25 | P.HPIM ---
History of Present Illness H&P Date: 11/03/16 Chief Complaint: Chest pain 89-year-old female with history of COPD, smoking, hypertension, dementia sent to emergency department by her friend due to complaint of chest pain. Patient is quite a poor historian and the history was taken with quite difficulties. Chest pain starting on the day of admission she was at her friend's house. Chest pain started after dinner. Patient was just sitting and watching TV she describes pain as lower retrosternal pain sharp and burning like without radiation on the right in intensity lasting several hours. Patient denied Any particular provoking alleviating or alleviating factors. She did not try anything for the pain. She cannot tell me if anything helping the pain in the emergency department or what was responsible for the pain to the nitroglycerin emergency department. She denies any shortness of breath nausea or sweating with the pain. Denies any heartburn or indigestion. No abdominal pain. Emergency department EKG was unremarkable and inferoseptal department was negative. She was chest x-ray shows some metallic peptic changes. She was started on antibiotics heparin drip and sent to the admission for further evaluation by cardiology. Patient cannot tell me if he is following with any investigative shopper or if she ever had a stress test. She stopped smoking 2 months ago. There ER note apparently she saw a investigative shopper 2 days. Review of Systems Constitutional: Denies chills, Denies chronic pain, Denies fatigue, Denies fever , Denies lethargy, Denies night sweats, Denies sweats Ears, nose, mouth and throat: Denies ant. neck pain, Denies dysphagia, Denies odynophagia Cardiovascular: Reports as per HPI, Denies decreased exercise tolerance, Denies dyspnea on exertion, Denies edema, Denies leg edema, Denies lightheadedness, Denies orthopnea, Denies palpitations, Denies paroxysmal nocturnal dyspnea, Denies shortness of breath Respiratory: Denies cough with sputum, Denies dyspnea, Denies home oxygen, Denies pain on inspiration, Denies pleurisy Gastrointestinal: Denies abdominal pain, Denies dyspepsia, Denies nausea, Denies vomiting Musculoskeletal: Denies myalgias, Denies neck pain, Denies neck stiffness Integumentary: Denies pruritus, Denies rash Endocrine: Denies cold intolerance, Denies excessive thirst, Denies fatigue, Denies heat intolerance Past Medical History Past Medical History: COPD, Dementia, Hypertension Additional Past Medical History / Comment(s): broke right wrist in 1978 History of Any Multi-Drug Resistant Organisms: None Reported Past Surgical History: No Surgical Hx Reported Past Anesthesia/Blood Transfusion Reactions: No Reported Reaction Additional Past Anesthesia/Blood Transfusion Reaction / Comment(s): no history of blood transfusion Past Psychological History: No Psychological Hx Reported, Depression Smoking Status: Former smoker Past Alcohol Use History: None Reported Past Drug Use History: None Reported - Past Family History Mother Family Medical History: CVA/TIA, Myocardial Infarction ([place]) Father Family Medical History: Myocardial Infarction [place]) Medications and Allergies Home Medications Medication Instructions Recorded Confirmed Type Aspirin EC [Ecotrin Low Dose] 81 mg PO DAILY 07/11/14 11/02/16 History Losartan Potassium [Cozaar] 25 mg PO DAILY 07/11/14 11/02/16 History Pravastatin Sodium [Pravachol] 40 mg PO HS 07/11/14 11/02/16 History Loratadine [Claritin] 10 mg PO DAILY 11/30/15 11/02/16 History Cholecalciferol [Vitamin D3] 1,000 unit PO DAILY 06/19/16 11/02/16 History Ranitidine HCl [Zantac] 150 mg PO DAILY 06/19/16 11/02/16 History Acetaminophen Tab [Tylenol Tab] 500 mg PO BID 11/02/16 11/02/16 History Albuterol Nebulized [Ventolin 2.5 mg INHALATION RT-BID PRN 11/02/16 11/02/16 History Nebulized] Ciprofloxacin HCl [Cipro] 500 mg PO BID 11/02/16 11/02/16 History Nicotine Polacrilex [Nicorette] 4 mg BUCCAL BID 11/02/16 11/02/16 History traZODone HCL 25 mg PO HS 11/02/16 11/02/16 History Allergies Allergy/AdvReac Type Severity Reaction Status Date / Time Sulfa (Sulfonamide Allergy Unknown Verified 11/02/16 22:10 Antibiotics) Physical Exam Vitals: Vital Signs Temp Pulse Pulse Resp BP BP Pulse Ox 11/03/16 02:43 97.6 F 79 18 155/80 100 11/03/16 02:05 97.6 F 72 18 143/63 97 11/03/16 01:03 72 18 143/63 97 11/03/16 00:23 86 18 132/63 98 11/02/16 23:50 87 18 149/67 98 11/02/16 22:10 97.6 F 108 H 16 170/72 98 Intake and Output 11/02/16 11/02/16 11/03/16 14:59 22:59 06:59 Other: Weight 52.163 kg 58.3 kg Patient Weight 11/03/16 06:59 Weight 58.3 kg - Constitutional General appearance: cooperative, no acute distress - EENT Eyes: anicteric sclerae, EOMI, PERRLA ENT: hard of hearing, normal oropharynx - Neck Neck: normal ROM, no rigidity, no thyromegaly - Respiratory Respiratory: bilateral: CTA, diminished, negative: rales, rhonchi, wheezing - Cardiovascular Rhythm: regular Heart sounds: normal: S1, S2 - Gastrointestinal General gastrointestinal: no distended, no hepatomegaly, normal bowel sounds, no organomegaly, soft - Neurologic Neurologic: CNII-XII intact - Musculoskeletal Musculoskeletal: strength equal bilaterally - Psychiatric Psychiatric: A&O x's 3, appropriate affect Results CBC & Chem 7: 11/02/16 22:21 11/02/16 22:21 Labs: Abnormal Lab Results - Last 24 Hours (Table) 11/02/16 11/02/16 Range/Units 22:21 22:21 WBC 10.8 H (3.8-10.6) k/uL BUN 27 H (7-17) mg/dL Creatinine 1.20 H (0.52-1.04) mg/dL Glucose 164 H (74-99) mg/dL Calcium 10.9 H (8.4-10.2) mg/dL Chest x-ray: report reviewed, image reviewed Thrombosis Risk Factor Assmnt - DVT/VTE Prophylaxis DVT/VTE Prophylaxis: Pharmacologic Prophylaxis ordered - Choose All That Apply Each Risk Factor Represents 3 Points: Age 75 years or older Thrombosis Risk Factor Assessment Total Risk Factor Score: 3 Thrombosis Risk Factor Assessment Level: Moderate Risk Assessment and Plan (1) Chest pain Narrative/Plan: Atypical in nature Repeat a few Factors for coronary artery disease Continue aspirin and statin technical solutions consultant Repeat troponin Discontinue heparin drip Discontinue antibiotics Status: Acute (2) COPD (chronic obstructive pulmonary disease) Narrative/Plan: This is stable Continue DuoNeb when necessary Continue nicotine replacement therapy from home Status: Acute (3) Hypercalcemia Narrative/Plan: This is noted on previous blood work as well Check intact PTH and vitamin D level Status: Acute (4) Elevated serum creatinine Narrative/Plan: Mild elevation Continue to monitor this Status: Acute (5) Hypertension Narrative/Plan: She is on losartan may be continued with monitoring creatinine Status: Acute
[2016-11-03 05:27] LABS: Calcium 10.2 mg/dL (8.4-10.2); Potassium 4.8 mmol/L (3.5-5.1)
[2016-11-03 05:42] LABS: Creatine Kinase MB 1.7 ng/mL (0.0-2.4); Troponin I 0.024 ng/mL (0.000-0.034)
[2016-11-03] MEDS ORDERED: ASPIRIN 325 MG TAB PO SCH (09:00)
[2016-11-03] MEDS ORDERED: ACETAMINOPHEN TAB 500 MG TAB PO SCH (09:00)
[2016-11-03] MEDS ORDERED: LORATADINE 10 MG TAB PO SCH (09:00)
[2016-11-03] MEDS ORDERED: NON-FORMULARY DRUG (Aspirin Ec 81 MG) PO SCH (09:00)
[2016-11-03] MEDS ORDERED: LOSARTAN 25 MG TAB PO SCH (09:00)
[2016-11-03] MEDS ORDERED: CHOLECALCIFEROL 1,000 UNIT TAB PO SCH (09:00)
[2016-11-03] MEDS ORDERED: FAMOTIDINE 20 MG TAB PO SCH (09:00)
[2016-11-03] MEDS ORDERED: NICOTINE POLACRILEX 2 MG GUM BUCCAL SCH (09:00)
--- NOTE | 2016-11-03 10:10 | P.PN ---
Subjective Principal diagnosis: Chest pain This is a very pleasant 89 years old female who presented to the hospital with complaints of the chest pain. Patient has been asymptomatic since admission, no chest pain or dyspnea. Denies cough or congestion, no dysuria. No issues overnight. Objective - Vital Signs Vital signs: Vital Signs Temp 97.1 F L 11/03/16 06:37 Pulse 62 11/03/16 06:37 Resp 18 11/03/16 06:37 BP 148/73 11/03/16 06:37 Pulse Ox 96 11/03/16 06:37 Intake & Output 11/02/16 11/03/16 11/03/16 18:59 06:59 18:59 Intake Total 600 Balance 600 Weight 58.3 kg Intake: Intake, IV Titration 600 Amount Azithromycin 500 mg In 500 Sodium Chloride 0.9% 250 ml @ 125 mls/hr IVPB ONCE STA Rx#:[id number] cefTRIAXone 2,000 mg In 100 Sodium Chloride 0.9% 100 ml @ 100 mls/hr IVPB HS SOMMER Rx#:[id number] Other: Voiding Method Toilet # Voids 1 - Exam General: No acute distress, sitting comfortably in bed. HEENT: Normocephalic and atraumatic, sclera anicteric. Neck: Supple, no JVD or thyromegaly. Cardiovascular exam reveals normal S1-S2, regular rate and rhythm. Chest-clear to auscultation bilaterally, good respiratory effort. No wheezes rales or crackles. Abdomen: Soft, nondistended, normoactive bowel sounds. Extremities: No edema or cyanosis, peripheral pulses 2+ bilaterally. Neuro: Awake alert oriented 3, good mood and affect. - Labs CBC & Chem 7: 11/02/16 22:21 11/03/16 04:43 Labs: Abnormal Lab Results - Last 24 Hours (Table) 11/02/16 11/02/16 11/03/16 Range/Units 22:21 22:21 04:43 WBC 10.8 H (3.8-10.6) k/uL Chloride 108 H (98-107) mmol/L Carbon Dioxide 20 L (22-30) mmol/L BUN 27 H 27 H (7-17) mg/dL Creatinine 1.20 H 1.10 H (0.52-1.04) mg/dL Glucose 164 H (74-99) mg/dL Calcium 10.9 H (8.4-10.2) mg/dL Assessment and Plan (1) Chest pain Narrative/Plan: Chest pain present on admission, troponins negative, EKG normal. Cardiology has been consulted, elevate and their input. Status: Acute (2) Hypercalcemia Narrative/Plan: Resolved after IV fluids. Monitor. Status: Acute (3) CKD (chronic kidney disease) Narrative/Plan: Creatinine slightly improved after hydration, will monitor. Status: Acute (4) COPD (chronic obstructive pulmonary disease) Narrative/Plan: Stable, continue bronchodilators. Status: Acute (5) Hypertension Narrative/Plan: Controlled, continue losartan. Status: Acute (6) Physical deconditioning Narrative/Plan: Fall precautions. PT OT evaluation. Status: Acute (7) Tobacco use disorder Narrative/Plan: Continue nicotine patch. Patient has been counseled regarding cessation of smoking. Status: Acute (8) DVT prophylaxis Narrative/Plan: Heparin subcu Status: Acute
[2016-11-03 11:12] LABS: Creatine Kinase MB 1.8 ng/mL (0.0-2.4); Troponin I 0.025 ng/mL (0.000-0.034)
[2016-11-03 13:45] LABS: Appearance,Urine Clear (Clear); Bilirubin,Urine Negative (Negative); Glucose,Urine (UA) Negative (Negative); Ketones,Urine Negative (Negative); Leukocyte Esterase,Urine Negative (Negative); Nitrite,Urine Negative (Negative); Protein,Urine Negative (Negative); Specific Gravity,Urine 1.013 (1.001-1.035); UA Billing (MACRO vs. MICRO) CHEM; Urobilinogen,Urine <2.0 mg/dL (<2.0)
--- NOTE | 2016-11-03 14:03 | P.DS ---
Providers Date of admission: 11/03/16 00:52 Expected date of discharge: 11/03/16 Attending physician: Vinicio Gr MD Consults: 11/03/16 00:52 Consult Physician Urgent Consulting Provider: Kip Almonte Consult Reason/Comments: Chest pain Do you want consulting provider notified?: Yes Primary care physician: Cherelle Cardenas - Discharge Diagnosis(es) (1) Chest pain 89-year-old female with history of COPD, smoking, hypertension, dementia sent to emergency department by her friend due to complaint of chest pain. Patient is quite a poor historian and the history was taken with quite difficulties. Chest pain starting on the day of admission she was at her friend's house. Chest pain started after dinner. Patient was just sitting and watching TV she describes pain as lower retrosternal pain sharp and burning like without radiation on the right in intensity lasting several hours. Patient denied Any particular provoking alleviating or alleviating factors. She did not try anything for the pain. She cannot tell me if anything helping the pain in the emergency department or what was responsible for the pain to the nitroglycerin emergency department. She denies any shortness of breath nausea or sweating with the pain. Denies any heartburn or indigestion. No abdominal pain. Emergency department EKG was unremarkable and inferoseptal department was negative. She was chest x-ray shows some metallic peptic changes. She was started on antibiotics heparin drip and sent to the admission for further evaluation by cardiology. Patient cannot tell me if he is following with any recording studio set up worker or if she ever had a stress test. She stopped smoking 2 months ago. There ER note apparently she saw a recording studio set up worker 2 days. Patient was admitted for observation, troponins and EKG negative. Cardiology evaluated patient and recommended no more cardiac workup, chest pain is atypical. She remained chest pain-free during entire admission. Evaluated by PT recommended home with assistance. Patient has been discharged home in improved and stable condition with recommendations to follow up with primary care physician in one week. Discharge time less than 30 minutes. Current Visit: Yes Status: Acute Priority: High (2) Hypercalcemia Current Visit: Yes Status: Acute Priority: Medium (3) CKD (chronic kidney disease) Current Visit: Yes Status: Acute (4) COPD (chronic obstructive pulmonary disease) Current Visit: Yes Status: Acute (5) Hypertension Current Visit: Yes Status: Acute Priority: Medium (6) Physical deconditioning Current Visit: Yes Status: Acute (7) Tobacco use disorder Current Visit: Yes Status: Acute (8) DVT prophylaxis Current Visit: Yes Status: Acute Patient Condition at Discharge: Fair Plan - Discharge Summary New Discharge Prescriptions: Continue Aspirin EC [Ecotrin Low Dose] 81 mg PO DAILY Pravastatin Sodium [Pravachol] 40 mg PO HS Losartan Potassium [Cozaar] 25 mg PO DAILY Loratadine [Claritin] 10 mg PO DAILY Ranitidine HCl [Zantac] 150 mg PO DAILY Ciprofloxacin HCl [Cipro] 500 mg PO BID Albuterol Nebulized [Ventolin Nebulized] 2.5 mg INHALATION RT-BID PRN PRN Reason: Shortness Of Breath Nicotine Polacrilex [Nicorette] 4 mg BUCCAL BID traZODone HCL 25 mg PO HS Acetaminophen Tab [Tylenol] 500 mg PO BID No Action Cholecalciferol [Vitamin D3] 1,000 unit PO DAILY Discharge Medication List Aspirin EC [Ecotrin Low Dose] 81 mg PO DAILY 07/11/14 [History] Losartan Potassium [Cozaar] 25 mg PO DAILY 07/11/14 [History] Pravastatin Sodium [Pravachol] 40 mg PO HS 07/11/14 [History] Loratadine [Claritin] 10 mg PO DAILY 11/30/15 [History] Cholecalciferol [Vitamin D3] 1,000 unit PO DAILY 06/19/16 [History] Ranitidine HCl [Zantac] 150 mg PO DAILY 06/19/16 [History] Acetaminophen Tab [Tylenol] 500 mg PO BID 11/02/16 [History] Albuterol Nebulized [Ventolin Nebulized] 2.5 mg INHALATION RT-BID PRN 11/02/16 [ History] Ciprofloxacin HCl [Cipro] 500 mg PO BID 11/02/16 [History] Nicotine Polacrilex [Nicorette] 4 mg BUCCAL BID 11/02/16 [History] traZODone HCL 25 mg PO HS 11/02/16 [History] Follow up Appointment(s)/Referral(s): Cherelle Cardenas MD [Primary Care Provider] - 1-2 days Activity/Diet/Wound Care/Special Instructions: up with assistance/regular diet Discharge Disposition: OTHER INSTITUTION NOT DEFINED
[2016-11-03 14:09] VITALS: BP 126/80; PULSE 75; RESP 16; TEMP 97.5
--- NOTE | 2016-11-03 14:25 | P.CRDCN ---
History of Present Illness Consult reason: chest pain History of present illness: Elderly female who presented with chest discomfort. Currently pain-free breathing normally. I spoke to her daughter I interviewed the patient Review of systems: No fever chills or rigors, no cough, phlegm or expectoration , no nausea, vomiting or diarrhea, no hematuria, dysuria, no musculoskeletal complaints, no strokes or seizures, no skin lesions. Medications reviewed and include Pravachol and losartan and aspirin Labs are reviewed hemoglobin 12.8 electrolytes are normal be an 27 creatinine 1.1 GFR 47 Cardiac enzymes are normal On examination no JVD thyromegaly or carotid bruits, heart sounds S1 and S2 are normal no murmurs or gallops, breath sounds are normal no rhonchi no crackles, abdomen soft and extremities warm no edema Blood pressure 126/80 mmHg pulse rate 75 afebrile 97.5 Impression Atypical chest discomfort with normal ECG and no abnormalities in the troponins Dyslipidemia, on statins Hypertension him a on losartan some blood pressure is elevated Suggest Watch blood pressure control and consider maximizing losartan if needed Continue statins and aspirin for cardiovascular risk reduction. This was discussed with the daughter and she is agreeable with the plan for medical treatment only Past Medical History Past Medical History: COPD, Dementia, Hypertension Additional Past Medical History / Comment(s): broke right wrist in 1978 History of Any Multi-Drug Resistant Organisms: None Reported Past Surgical History: No Surgical Hx Reported Past Anesthesia/Blood Transfusion Reactions: No Reported Reaction Additional Past Anesthesia/Blood Transfusion Reaction / Comment(s): no history of blood transfusion Past Psychological History: No Psychological Hx Reported, Depression Smoking Status: Former smoker Past Alcohol Use History: None Reported Past Drug Use History: None Reported - Past Family History Mother Family Medical History: CVA/TIA, Myocardial Infarction ([place]) Father Family Medical History: Myocardial Infarction ([place]) Medications and Allergies Home Medications Medication Instructions Recorded Confirmed Type Aspirin EC [Ecotrin Low Dose] 81 mg PO DAILY 07/11/14 11/02/16 History Losartan Potassium [Cozaar] 25 mg PO DAILY 07/11/14 11/02/16 History Pravastatin Sodium [Pravachol] 40 mg PO HS 07/11/14 11/02/16 History Loratadine [Claritin] 10 mg PO DAILY 11/30/15 11/02/16 History Cholecalciferol [Vitamin D3] 1,000 unit PO DAILY 06/19/16 11/02/16 History Ranitidine HCl [Zantac] 150 mg PO DAILY 06/19/16 11/02/16 History Acetaminophen Tab [Tylenol] 500 mg PO BID 11/02/16 11/02/16 History Albuterol Nebulized [Ventolin 2.5 mg INHALATION RT-BID PRN 11/02/16 11/02/16 History Nebulized] Ciprofloxacin HCl [Cipro] 500 mg PO BID 11/02/16 11/02/16 History Nicotine Polacrilex [Nicorette] 4 mg BUCCAL BID 11/02/16 11/02/16 History traZODone HCL 25 mg PO HS 11/02/16 11/02/16 History Allergies Allergy/AdvReac Type Severity Reaction Status Date / Time Sulfa (Sulfonamide Allergy Unknown Verified 11/02/16 22:10 Antibiotics) Physical Exam Vitals: Vital Signs Temp Pulse Pulse Resp BP BP Pulse Ox 11/03/16 12:00 97.5 F L 75 16 126/80 97 11/03/16 08:00 97.0 F L 80 18 157/68 96 11/03/16 06:37 97.1 F L 62 18 148/73 96 11/03/16 02:43 97.6 F 79 18 155/80 100 11/03/16 02:30 97.6 F 79 18 155/80 100 11/03/16 02:05 97.6 F 72 18 143/63 97 11/03/16 01:03 72 18 143/63 97 11/03/16 00:23 86 18 132/63 98 11/02/16 23:50 87 18 149/67 98 11/02/16 22:10 97.6 F 108 H 16 170/72 98 Intake and Output 11/02/16 11/03/16 11/03/16 22:59 06:59 14:59 Intake Total 600 300 Balance 600 300 Intake: Intake, IV Titration 600 Amount Azithromycin 500 mg In 500 Sodium Chloride 0.9% 250 ml @ 125 mls/hr IVPB ONCE [facility] Rx#:[id number] cefTRIAXone 2,000 mg In 100 Sodium Chloride 0.9% 100 ml @ 100 mls/hr IVPB HS [facility] Rx#:[id number] Oral 300 Other: Voiding Method Toilet # Voids 1 Weight 52.163 kg 58.3 kg Results 11/02/16 22:21 08/23/17 04:43 Cardiac Enzymes 11/02/16 11/02/16 11/03/16 Range/Units 22:21 22:21 04:43 AST 20 (14-36) U/L CK-MB (CK-2) 0.7 1.7 (0.0-2.4) ng/mL Troponin I <0.012 0.024 (0.000-0.034) ng/mL 11/03/16 Range/Units 10:33 AST (14-36) U/L CK-MB (CK-2) 1.8 (0.0-2.4) ng/mL Troponin I 0.025 (0.000-0.034) ng/mL Coagulation 11/02/16 Range/Units 22:21 PT 9.7 (9.0-12.0) sec APTT 23.6 (22.0-30.0) sec CBC 11/02/16 Range/Units 22:21 WBC 10.8 H (3.8-10.6) k/uL RBC 4.05 (3.80-5.40) m/uL Hgb 12.8 (11.4-16.0) gm/dL Hct 39.2 (34.0-46.0) % Plt Count 317 (150-450) k/uL Comprehensive Metabolic Panel 11/02/16 11/03/16 Range/Units 22:21 04:43 Sodium 140 138 (137-145) mmol/L Potassium 4.0 4.8 (3.5-5.1) mmol/L Chloride 105 108 H (98-107) mmol/L Carbon Dioxide 22 20 L (22-30) mmol/L BUN 27 H 27 H (7-17) mg/dL Creatinine 1.20 H 1.10 H (0.52-1.04) mg/dL Glucose 164 H 88 (74-99) mg/dL Calcium 10.9 H 10.2 (8.4-10.2) mg/dL AST 20 (14-36) U/L ALT 29 (9-52) U/L Alkaline Phosphatase 88 (38-126) U/L Total Protein 7.1 (6.3-8.2) g/dL Albumin 4.2 (3.5-5.0) g/dL Current Medications Generic Name Dose Route Start Last Admin Trade Name Freq PRN Reason Stop Dose Admin Albuterol Sulfate 2.5 mg 11/03/16 01:04 Ventolin Nebulized INHALATION RT-BID PRN Shortness Of Breath Aspirin 325 mg 11/03/16 09:00 11/03/16 08:27 Aspirin PO 325 mg DAILY [facility] Administration Famotidine 20 mg 11/03/16 09:00 11/03/16 08:28 Pepcid PO 20 mg DAILY [facility] Administration Loratadine 10 mg 11/03/16 09:00 11/03/16 08:28 Claritin PO 10 mg DAILY [facility] Administration Losartan Potassium 25 mg 11/03/16 09:00 11/03/16 08:28 Cozaar PO 25 mg DAILY [facility] Administration Nicotine Polacrilex 4 mg 11/03/16 09:00 11/03/16 08:28 Nicorette Gum BUCCAL 4 mg BID [facility] Administration Nitroglycerin 0.4 mg 11/03/16 00:52 Nitrostat SUBLINGUAL Q5M PRN Chest Pain Pravastatin Sodium 40 mg 11/03/16 21:00 Pravachol PO HS [facility] Trazodone HCl 25 mg 11/03/16 21:00 Desyrel PO HS [facility] Intake and Output 11/02/16 11/03/16 11/03/16 22:59 06:59 14:59 Intake Total 600 300 Balance 600 300 Intake: Intake, IV Titration 600 Amount Azithromycin 500 mg In 500 Sodium Chloride 0.9% 250 ml @ 125 mls/hr IVPB ONCE [facility] Rx#:[id number] cefTRIAXone 2,000 mg In 100 Sodium Chloride 0.9% 100 ml @ 100 mls/hr IVPB HS [facility] Rx#:[id number] Oral 300 Other: Voiding Method Toilet # Voids 1 Weight 52.163 kg 58.3 kg 11/02/16 22:21 11/03/16 04:43
[2016-11-03] MEDS ORDERED: traZODone HCL 50 MG TAB PO SCH (21:00)
[2016-11-03] MEDS ORDERED: PRAVASTATIN SODIUM 40 MG TAB PO SCH (21:00)
[2016-11-03] MEDS ORDERED: cefTRIAXone 2,000 MG in SODIUM CHLORIDE 0.9% 100 ML IVPB SCH (23:00)
== END 2016-11-03 15:04 | disposition home or self-care (01) | DRG 313 ==
LOC: EC 22:06 → 6SEL 11-03 00:52
PROVIDERS: ADMIT Hospitalist; ATTEND Hospitalist
DX: R07.89 Other chest pain (principal); E83.52 Hypercalcemia; F03.90 Unspecified dementia, unspecified severity, without behavioral disturbance, psychotic disturbance, mood disturbance, and anxiety; J44.9 Chronic obstructive pulmonary disease, unspecified; I12.9 Hypertensive chronic kidney disease with stage 1 through stage 4 chronic kidney disease, or unspecified chronic kidney disease; N18.9 Chronic kidney disease, unspecified; F32.9 Major depressive disorder, single episode, unspecified; Z79.899 Other long term (current) drug therapy; Z79.82 Long term (current) use of aspirin; Z88.2 Allergy status to sulfonamides; Z87.891 Personal history of nicotine dependence; Z82.49 Family history of ischemic heart disease and other diseases of the circulatory system
CPT/HCPCS: 36415; 71020; 80048; 80053; 81003; 82550; 82553; 83735; 83880; 83970; 84484; 85025; 85379; 85610; 85730; 87086; 93005; 96365; 96368; 96375; 99291

== ENCOUNTER 2017-01-29 15:43 | Emergency (ER) | payer MEDICARE ==
--- NOTE | 2017-01-29 16:18 | ED ---
Fall HPI - General Chief Complaint: Fall Stated Complaint: Fall Time Seen by Provider: 01/29/17 16:08 Source: patient, family, RN notes reviewed Mode of arrival: wheelchair Limitations: no limitations - History of Present Illness Initial Comments: This is an 89-year-old female presents emergency Department chief complaint trip and fall. She states that she tripped over small step falling onto her right side and complains of right rib pain and some back pain. Patient states that she fractured her lumbar spine last year. Patient states pain is pretty consistent with her normal discomfort. Patient denies any hip pain, lower extremity injury. She states she has pain over right chest wall more towards her right axilla region. She does have some pain with deep inspiration.. Patient does not feel short of breath at rest. Denies head injury no LOC. - Related Data Home Medications Medication Instructions Recorded Confirmed Aspirin EC [Ecotrin Low Dose] 81 mg PO DAILY 07/11/14 01/29/17 Losartan Potassium [Cozaar] 25 mg PO DAILY 07/11/14 01/29/17 Pravastatin Sodium [Pravachol] 40 mg PO HS 07/11/14 01/29/17 Loratadine [Claritin] 10 mg PO DAILY 11/30/15 01/29/17 Cholecalciferol [Vitamin D3] 1,000 unit PO DAILY 06/19/16 01/29/17 Ranitidine HCl [Zantac] 150 mg PO DAILY 06/19/16 01/29/17 Acetaminophen Tab [Tylenol] 500 mg PO BID 11/02/16 01/29/17 Albuterol Nebulized [Ventolin 2.5 mg INHALATION RT-BID PRN 11/02/16 01/29/17 Nebulized] Nicotine Polacrilex [Nicorette] 4 mg MUCOUS MEM BID 11/02/16 01/29/17 traZODone HCL 50 mg PO HS 11/02/16 01/29/17 Allergies Allergy/AdvReac Type Severity Reaction Status Date / Time Sulfa (Sulfonamide Allergy Unknown Verified 01/29/17 16:10 Antibiotics) Review of Systems ROS Statement: Those systems with pertinent positive or pertinent negative responses have been documented in the HPI. ROS Other: All systems not noted in ROS Statement are negative. Past Medical History Past Medical History: COPD, Dementia, Hypertension Additional Past Medical History / Comment(s): broke right wrist in 1978 History of Any Multi-Drug Resistant Organisms: None Reported Past Surgical History: No Surgical Hx Reported Past Anesthesia/Blood Transfusion Reactions: No Reported Reaction Additional Past Anesthesia/Blood Transfusion Reaction / Comment(s): no history of blood transfusion Past Psychological History: No Psychological Hx Reported, Depression Smoking Status: Former smoker Past Alcohol Use History: None Reported Past Drug Use History: None Reported - Past Family History Mother Family Medical History: CVA/TIA, Myocardial Infarction ([place]) Father Family Medical History: Myocardial Infarction ([place]) General Exam Limitations: no limitations General appearance: alert, in no apparent distress Head exam: Present: atraumatic, normocephalic, normal inspection Neck exam: Present: normal inspection, full ROM. Absent: tenderness, meningismus, lymphadenopathy Respiratory exam: Present: normal lung sounds bilaterally, chest wall tenderness (Mild tenderness over the upper right anterior lateral chest wall region). Absent: respiratory distress, wheezes, rales, rhonchi, stridor Cardiovascular Exam: Present: regular rate, normal rhythm, normal heart sounds. Absent: systolic murmur, diastolic murmur, rubs, gallop, clicks GI/Abdominal exam: Present: soft, normal bowel sounds. Absent: distended, tenderness, guarding, rebound, rigid Extremities exam: Present: normal inspection, full ROM, normal capillary refill , other (No tenderness of either hip or pelvis region). Absent: tenderness, pedal edema, joint swelling, calf tenderness Back exam: Present: normal inspection, full ROM, tenderness (Minimal tenderness lumbar) Neurological exam: Present: alert, oriented X3, CN II-XII intact Psychiatric exam: Present: normal affect, normal mood Skin exam: Present: warm, dry, intact, normal color. Absent: rash Course Vital Signs 01/29/17 15:58 Temperature 98.3 F Pulse Rate 64 Respiratory 20 Rate Blood Pressure 168/78 O2 Sat by Pulse 99 Oximetry Medical Decision Making - Medical Decision Making 89-year-old female presented for a trip and fall. There is no head injury no loss conscious. There is no syncopal episode. Patient's x-rays were reviewed which showed chronic deformity of L1 unchanged from prior x-ray of lumbar spine. Chest x-ray shows no acute rib fracture, pneumothorax. Patient be discharged at this time with close follow-up and return parameters were discussed. Disposition Clinical Impression: Fall, Rib contusion Disposition: HOME SELF-CARE Condition: Stable Instructions: Rib Contusion (ED) Additional Instructions: Please return to the Emergency Department if symptoms worsen or any other concerns. Referrals: Cherelle Cardenas MD [Primary Care Provider] - 1-2 days Time of Disposition: 16:49
--- NOTE | 2017-01-29 16:42 | XR ---
EXAMINATION TYPE: XR lumbar spine 2 or 3V DATE OF EXAM: 01/29/2017 CLINICAL HISTORY: Pain after fall. Known compression deformity of the lumbar spine. TECHNIQUE: Frontal and lateral images of the lumbar spine are obtained. COMPARISON: 06/19/2016 FINDINGS: There are 5 lumbar type vertebral bodies identified. Compression deformity of L1 is simila r to the exam of 06/19/2016 again estimated at 30-40% height loss. No distinct retropulsion is identifi ed. Given the technique the known grade 1 anterolisthesis of L3 on L4 is not evident. Multilevel dege nerative disc disease is seen as facet arthropathy, intervertebral disc space narrowing, vacuum disc disease at L5-S1 and small anterior osteophytes throughout the lumbar spine. This is most pronounced at L4-5 and L5-S1. Fracture deformity of the coccyx is unchanged from the prior. Moderate calcific at heromatous changes are seen of the abdominal aorta. IMPRESSION: 1. No acute fracture is seen in the lumbar spine. 2. Unchanged compression deformity of the L1 vertebral body in comparison to exam of 06/19/2016 with ap proximately 30-40% height loss and no retropulsion. 3. Multilevel degenerative disc disease most exaggerated at L4-5 and L5-S1. 4. Chronic fracture deformity of the coccyx.
--- NOTE | 2017-01-29 16:45 | XR ---
EXAMINATION TYPE: XR ribs RT w pa chest xray DATE OF EXAM: 01/29/2017 CLINICAL HISTORY: Right rib pain after a fall. TECHNIQUE: Single frontal view of the chest is obtained. Additional frontal and oblique views of the right ribs were obtained. COMPARISON: 11/02/2016 FINDINGS: Diffuse interstitial prominence is unchanged from the prior of 10/31/2016 and this chronic. There is no focal air space opacity, pleural effusion, or pneumothorax seen. The cardiac silhouette size is within normal limits. The osseous structures are intact. Chronic fracture deformity of the right proximal humerus is noted with moderate right acromio clavicular arthropathy. IMPRESSION: No acute cardiopulmonary process. No displaced right rib fracture. Chronic fracture defo rmity of the proximal right humerus.
[2017-01-29 16:52] VITALS: PULSE 67; RESP 18; TEMP 97.7
[2017-01-29 17:05] VITALS: BP 188/82
== END 2017-01-29 17:24 | disposition home or self-care (01) ==
LOC: EC 15:43
DX: S20.211A Contusion of right front wall of thorax, initial encounter (principal); I10 Essential (primary) hypertension; F03.90 Unspecified dementia, unspecified severity, without behavioral disturbance, psychotic disturbance, mood disturbance, and anxiety; F32.9 Major depressive disorder, single episode, unspecified; Z87.891 Personal history of nicotine dependence; Z79.82 Long term (current) use of aspirin; Z79.899 Other long term (current) drug therapy; Z88.2 Allergy status to sulfonamides; W01.0XXA Fall on same level from slipping, tripping and stumbling without subsequent striking against object, initial encounter
CPT/HCPCS: 72100; 99283